=== PATIENT | female | born 1990 ===

== ENCOUNTER 2017-04-27 08:36 | Inpatient (IN) | payer OTHER ==
[~2017-04-27] VITALS: Ht 158.8 cm; Wt 68.6 kg
[2017-05-28] VITALS (18 sets, daily range): BP systolic 96–127; BP diastolic 51–89; PULSE 82–104; TEMP 97.6–98.9
[2017-05-28 06:40] LABS: BASO % 0.2 % (0.0-2.0); EOS % 0.4 % (0-4.0); LYMPH # 1.7 (1.2-3.4); LYMPH % 20.3 % (20.0-51.0); MEAN CELL VOLUME 97 fl (80.0-100.0); MEAN CORPUSCULAR HGB CONC 34 g/dl (33.0-37.0); MEAN PLATELET VOLUME 10.8 fl (7.4-10.4); MONO # 0.5 (0.1-0.6); MONO % 6.1 % (1.7-9.3); PLATELET COUNT 180 K/mm3 (130-400); RED BLOOD COUNT 3.57 M/mm3 (4.10-5.30); REDCELL DISTRIBUTION WIDTH-CV 12.9 % (11.5-14.5)
[2017-05-28 06:46] LABS: HEMATOCRIT 34.7 % (37.0-47.0); HEMOGLOBIN 11.9 g/dl (12.5-16.0); MEAN CORPUSCULAR HEMOGLOBIN 33 pg (27.0-31.0)
[2017-05-28] MEDS ORDERED: CALCIUM 600MG+D1 TAB PO (06:50)
[2017-05-28] MEDS ORDERED: COLACE 100100 MG/CAP PO (06:50)
[2017-05-28] MEDS ORDERED: PRENATAL MVI (06:50)
[2017-05-28] MEDS ORDERED: PERCOCET 325 MG1 TA2 PO (07:22)
[2017-05-28] MEDS ORDERED: MOTRIN 800800 MG/TAB PO (07:22)
[2017-05-29 01:00] VITALS: BP 111/69; PULSE 87; TEMP 98.6
[2017-05-29 04:40] VITALS: BP 109/67; PULSE 82; TEMP 98.3
[2017-05-29 06:50] VITALS: BP 120/76; PULSE 85; TEMP 97.9
[2017-05-29 07:22] LABS: HEMATOCRIT 27.3 % (37.0-47.0); HEMOGLOBIN 9.3 g/dl (12.5-16.0)
[2017-05-29 16:55] VITALS: BP 118/59; PULSE 84; TEMP 98.7
[2017-05-29 19:30] VITALS: BP 124/66; PULSE 95; TEMP 97.9
[2017-05-30 04:12] VITALS: BP 115/72; PULSE 89; TEMP 98.1
[2017-05-30 08:40] VITALS: BP 127/85; PULSE 87; TEMP 97.8
[2017-05-30 15:40] VITALS: BP 138/66; PULSE 94; TEMP 98.9
[2017-05-30 21:00] VITALS: BP 133/78; PULSE 90; TEMP 98.3
[2017-05-31 06:45] VITALS: BP 123/77; PULSE 85; TEMP 98.1
[2017-05-31] MEDS ORDERED: TYLENOL 500MG500 MG PO (11:09)
== END 2017-05-31 14:25 | disposition home or self-care (01) | DRG 766 ==
LOC: OB 05-28 05:54 → LDR 05-28 06:54 → OB 05-31 14:25 → LDR 06-19 08:36
PROVIDERS: Obstetrics & Gynecology
PROC: 10D00Z1 Extraction of Products of Conception, Low, Open Approach (ICD-10-PCS; principal; 2017-05-28)
DX: O44.03 Complete placenta previa NOS or without hemorrhage, third trimester (principal); Z3A.36 36 weeks gestation of pregnancy; Z37.0 Single live birth
CPT/HCPCS: J0690; J2175; J2405; J2590; J3010; J7120

== ENCOUNTER → 2017-10-02 | Outpatient (CLI) | payer OTHER ==
[~2017-10-02] MED LIST: CALCIUM 600MG+D1 TAB PO; COLACE 100100 MG/CAP PO; MOTRIN 800800 MG/TAB PO; PERCOCET 325 MG1 TA2 PO; PRENATAL MVI; TYLENOL 500MG500 MG PO
== END ==
LOC: MC.RAD 10:00
DX: N63.21 Unspecified lump in the left breast, upper outer quadrant (principal)